=== PATIENT | male | born 1965 | race Caucasian/White ===

== ENCOUNTER 2016-04-23 13:07 | Day surgery (SDC) | payer OTHER ==
[~2016-04-23] VITALS: Ht 177.8 cm; Wt 96.0 kg
[~2016-04-23 13:07] MED LIST: CIPR-231 PO; METR500T19 PO; Sodium Chloride LOK Flush 10 mL Syringe IVFLUSH SCH; fentaNYL-PF 50 mCg/mL 2 mL Inj IVPUSH PRN
[2016-04-23 13:23] VITALS: BP 132/85; PULSE 57; RESP 16; O2SAT 99
[2016-04-23 14:58] VITALS: BP 101/63; PULSE 67; RESP 16; O2SAT 93
[2016-04-23 15:08] VITALS: BP 96/60; PULSE 54; RESP 17; O2SAT 93
[2016-04-23 15:19] VITALS: BP 104/67; PULSE 55; O2SAT 96
--- NOTE | 2016-04-23 18:17 | ENDO ---
[address] [address] ENDOSCOPY PROCEDURE PATIENT: LUCILLE GRIFFIN : 1965 MR#: [id number] ADMIT: 04/23/2016 JOB ID: [id number] PRIMARY CARE PHYSICIAN: Carolina Solis MD PROCEDURE: Colonoscopy. 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 He has never had a screening colonoscopy and is scheduled to undergo a surgical repair of the fistula with sigmoid colectomy in a few weeks. EQUIPMENT: PCF H 180 AL. SEDATION: Versed 8 mg, fentanyl 150 mcg. PREPARATION QUALITY: Fair. COMPLICATIONS: None identified. PROCEDURE INFORMATION: The patient was brought into the endoscopy suite and placed in the left lateral decubitus position. Sedation was achieved using the above-stated medications with the addition of oxygen administered via nasal cannula. A digital rectal exam was performed and unremarkable. The scope was then introduced through the anus and slowly advanced under direct visualization. There was obvious inflammation and some narrowing in the area of the sigmoid colon. The scope was carefully navigated through this and directed into the cecum. The appendiceal orifice as well as the ileocecal valve were identified and photographed. Quality of the prep was fair. The scope was then slowly withdrawn while carefully examining the mucosa for any defects or polyps. I could not directly identify the fistula, though there was a limited segment of sigmoid colon with inflammation. In the rectum, retroflexed views were obtained. The scope was then withdrawn. The entire procedure was well tolerated, without complication. FINDINGS: Diverticular disease in the sigmoid colon with inflammation. RECOMMENDATIONS: The patient will proceed with surgery as scheduled.
== END 2016-04-23 23:59 | disposition home or self-care (01) ==
LOC: END 13:07
PROVIDERS: ATTEND General Practice
DX: N32.1 Vesicointestinal fistula (principal); K57.32 Diverticulitis of large intestine without perforation or abscess without bleeding; Z87.891 Personal history of nicotine dependence
CPT/HCPCS: 45378; 99153; G0500; J2250; J7030

== ENCOUNTER 2016-05-08 05:41 | Inpatient (IN) | payer OTHER ==
[~2016-05-08] VITALS: Ht 177.8 cm; Wt 98.5 kg
[2016-05-08] VITALS (10 sets, daily range): BP systolic 107–135; BP diastolic 72–89; PULSE 72–95; RESP 16–27; O2SAT 94–99
[2016-05-08] MEDS: Lactated Ringer's 1,000 ML IV SCH ×5 (05:00→11:16)
[2016-05-08] MEDS ORDERED: Acetaminophen IV 1,000 MG in IV Premix 1 EACH IV ONE (06:00)
[2016-05-08] MEDS ORDERED: Bupivacaine Liposome 1.3% 20 mL Inj INFILTRATE ONE (06:00)
[2016-05-08] MEDS ORDERED: CeFAZolin Inj 2 GM in IV Premix 1 EACH IV ONE (06:00)
[2016-05-08] MEDS ORDERED: Bupivacaine-MPF 0.5% W/EPI 30 mL Inj INFILTRATE ONE (07:24)
[2016-05-08] MEDS ORDERED: Lactated Ringer's 500 ML IV PRN (08:11)
[2016-05-08] MEDS ORDERED: Lactated Ringer's 1,000 ML IV SCH (08:11)
--- NOTE | 2016-05-08 08:11 | PCM.HPANE ---
Patient Data Date of Service: May 08, 2016 Surgeon Admitting Provider: Attending Provider:Irvin Chung MD Primary Care Physician:Carolina Solis MD Other Provider:Kaye Cantrell Anesthesia Reason for Visit Diverticulitis, Vesicointestinal Fistula Ht/WT & BMI Height (Feet): 5 Height (Inches): 10 Weight (Kilograms): 96.3 Body Mass Index 30.00 Allergies Coded Allergies: No Known Allergies (Unverified , 04/23/16) Past Anesthesia History Anesthesia History: Denies:: Abnormal Airway, Anesthesia Reactions, Difficult Intubation, Fam Anesthesia Reaction, Fam Malignant Hypertherm, Malignant Hyperthermia Diabetes History Hx Diabetes?: No Current Bedside Blood Glucose: 100 MRSA MRSA: No Medications Hypertension Medication: No Home Meds Incl Beta Hossein: No No Active Prescriptions or Reported Meds History HEENT History: Denies:: Abnormal Airway Cataracts Difficult Intubation Dysphagia Glaucoma Hearing Problem Sinus Problem TMJ Hx of Heart Problems?: No Cardiovascular History: Denies:: AICD Abdominal Aortic Aneurism Chest Pain Congestive Heart Failure Coronary Artery Disease Edema Heart Murmur Hypertension Irregular Heartbeat Pacemaker Peripheral Vascular Rheumatic Fever Thrombophlebitis Hx of Respiratory Problem?: No Respiratory History: Denies:: Asthma COPD Emphysema Oxygen Administration Pneumonia Tuberculosis Use of C-PAP Machine Use of Inhalers / NEBS Hx Neurologic Problems?: No Neurological History: Denies:: CVA Headaches Multiple Sclerosis Parkinson's Disease Seizures Hx of GI Problems?: Yes Gastrointestinal History: Positive for:: Diverticulitis Denies:: Gall Bladder Disease Gastroesphageal Reflux Gastrointestinal Bleeding Heartburn Hepatitis Hiatal Hernia Liver Disease Other GI Pertinent History: colovesicular fistula current admission problem Hx of Problems?: No Genitourinary History: Denies:: Kidney Stones Urinary Tract Infection Male Hx: Denies:: Prostate Problems Scrotal Mass Testicular Surgery Skin History: Denies:: History Skin Disorders? Pressure Ulcers Hx Musculoskeletal Problems?: Yes Musculoskeletal History: Positive for:: Back Injury Osteoarthritis (knees) Denies:: Fibromyalgia Joint Replacement Musculoskeletal Trauma Myasthenia Gravis Rheumatoid Arthritis Hx of Psycho/Social Problems?: No Psycho Social History: Denies:: Anxiety Hx Depression Hx Surgeries?: Yes (R KNEE, TONSILS) Hx Any Other Health Problems?: Yes Other History: Denies:: Cancer Thyroid Disease History Blood Transfusions: Positive for:: Accept Blood Products? Denies:: Blood Transfusions Hx Diabetes: NoBedside Blood Glucose: 100 Hx Alcohol Use: YesAlcoholic Drinks Per Day: one drink every few monthsHx Substance Use: No Smoking Status: Former Smoker Have You Smoked inLast 12 mo: No Stop/Bang S-Snoring: Do You Snore Loudly: No T-Tired: feel tired, fatigued: No O-Obsered: Observed not breath: No P-Blood Pressure: treated: No B- Body Mass Index > 35 kg/m2: No A- Age over 50: No N- Neck Large Circumference: No G- Gender Male: Yes HIEN Total Score: 1 HIEN Risk Assessment: Low Risk, <3 Yes Risk Assessment Category Category 1A: Patient has history of documented sleep apnea, and HAS NOT received any narcotic, sedative or anesthesia administration during this stay. Category 1B: Patient has history of documented sleep apnea, and HAS received any narcotic , sedative or anesthesia administration during this stay Category 2: Patient has SUSPECTED Obstructive Sleep Apnea, and HAS received any narcotic , sedative or anesthesia administration during this stay. Category 3: Patient has SUSPECTED Obstructive Sleep Apnea and HAS NOT received narcotic, sedative or anesthesia administration during this stay. Category 4: Outpatient in Procedural Areas with known sleep apnea or who screen positive for High Risk via the STOP/BANG questionnaire. Exam Exam Vital Signs Vital Signs Date Time Temp Pulse Resp B/P Pulse Ox O2 Delivery O2 Flow Rate FiO2 05/08/16 06:04 36 72 16 107/72 96 Room Air General Appearance: Alert, Oriented X3, Cooperative HEENT/AIRWAY: MP 1 Lungs: Clear to Auscultation Heart: Exam Unremarkable Meds/Labs/Diagnostics Admission Meds Current Medications Lactated Ringer's (Lr) 1,000 ml @ 120 mls/hr Q8H20M IV Last administered on 05:50; Start 05/08/16 at 05:00; Stop 05/08/16 at 13:19 Gabapentin (Neurontin) 600 mg PREOP ONCE PO Last administered on 05/08/16 06: 17; Start 05/08/16 at 06:00; Stop 05/08/16 at 06:01; Status DC Celecoxib (CeleBREX) 200 mg PREOP ONCE PO Last administered on 05/08/16 06:17 ; Start 05/08/16 at 06:00; Stop 05/08/16 at 06:01; Status DC Scopolamine 1.5 mg 1.5 mg ONCE ONCE TOPICAL Last administered on 05/08/16 06: 17; Start 05/08/16 at 05:00; Stop 05/08/16 at 05:01; Status DC Acetaminophen/ Premix (Tylenol IV/IV Premix) 100 ml @ 400 mls/hr ONCE ONCE IV Last administered on 05/08/16 06:17; Start 05/08/16 at 06:00; Stop 05/08/16 at 06:14; Status DC Bedside Blood Glucose: 100 Plan Impression Patient chart reviewed, patient interviewed and anesthestic plan with risks, benefits, and alternatives discussed, and informed consent obtained. NPO Status: 05/07/16 ASA Physical Status: ASA2 Mod Systemic Disease Anesthetic Plan: GA Bene/Risks/Altern/Consents: Yes HP Complete Prior to Induction: Yes Arpan Loving MD May 08, 2016 08:11
[2016-05-08] MEDS ORDERED: HYDROmorphone 1 mg/mL Inj IVPUSH PRN (08:15)
[2016-05-08] MEDS ORDERED: Ondansetron 2 mg/mL 2 mL Inj IVPUSH PRN ×2 (08:15→13:05)
[2016-05-08] MEDS ORDERED: Dexamethasone 4 mg/mL Inj IVPUSH PRN (08:15)
[2016-05-08] MEDS ORDERED: EPHEDrine Sulfate 50 mg/mL Inj IVPUSH PRN (08:15)
[2016-05-08] MEDS ORDERED: Phenylephrine 10,000 mCg/mL Inj IVPUSH PRN (08:15)
[2016-05-08] MEDS ORDERED: fentaNYL-PF 50 mCg/mL 2 mL Inj IVPUSH PRN (08:15)
[2016-05-08] MEDS ORDERED: MetoCLOpramide 5 mg/mL 2 mL Inj IVPUSH PRN ×2 (08:15→13:05)
--- NOTE | 2016-05-08 08:45 | OP ---
[address] [address] OPERATIVE REPORT PATIENT: LUCILLE GRIFFIN : 1965 MR#: [id number] ADMIT: 05/08/2016 JOB ID: [id number] DATE OF SURGERY: 05/08/2016 SURGEON: Jordyn Angulo MD PREOPERATIVE DIAGNOSIS(ES): 1. Complicated diverticulitis. 2. Colovesical fistula. POSTOPERATIVE DIAGNOSIS(ES): 1. Complicated diverticulitis. 2. Colovesical fistula. OPERATION PERFORMED: 1. Cystoscopy placement of right illuminated ureteral catheter. 2. Cystoscopy placement left ureteral stent (7-Luxembourger x 22-32 multi-length). ANESTHESIOLOGIST: Arpan Loving MD ANESTHESIA: General. FINDINGS: Urethra normal. External sphincter intact. Prostate 3.5 cm length with mild lateral lobe hyperplasia. There was bullous edema and erythema in a patchy format with no known specific identified fistulous tract at the left dome. Ureteral orifices were normal in appearance bilaterally. There is obstruction met at 10 cm proximal to the left ureteral orifice and neither a illuminated nor a non-illuminated ureteral catheter could be advanced. A 0.35 Chad Glidewire was successfully passed and a subsequently a 7-Luxembourger by 22-32 cm multi-length stent was positioned over the wires successfully. No retrieval line was left attached. PROCEDURE SUMMARY: The patient was positioned supine and was administered general anesthesia. He was then re-positioned in semi-lithotomy and the lower abdomen, genitalia, and groin were prepped and draped in sterile fashion. The 22-Luxembourger panendoscope was then passed through the lower urinary tract with the findings as described above. A red labeled illuminated stent was readily positioned in the right collecting system. The Black labeled illuminated catheter was then advanced through the scope and into the left ureteral meatus and obstruction was met and with careful manipulation could not successful or confidently be passed proximally. It was removed and a whistle-tip ureteral catheter was then utilized and again was met with obstruction at the 10 cm zane. A 0.35 Glidewire was then utilized and advanced into the left collecting system with some manipulation successfully and over this a 7-Luxembourger x 22-32 cm multi-length stent was positioned successfully. No retrieval line was left attached. The bladder was then left partially filled. A 16-Luxembourger Mcarthur catheter was inserted. The illuminated stent was affixed to the catheter with 2 small OpSite dressings. The Mcarthur was placed to gravity drainage. Dr. Chung then proceeded with his portion of the operative plan and details of which can be found in his operative report. From urologic standpoint, I request followup visit in my office 1-2 weeks post discharge for office cystoscopy and left ureteral stent removal.
--- NOTE | 2016-05-08 13:15 | OP ---
[address] [address] OPERATIVE REPORT PATIENT: LUCILLE GRIFFIN : 1965 MR#: [id number] ADMIT: 05/08/2016 JOB ID: [id number] DATE OF SURGERY: 05/08/2016 ANESTHESIA: General. PREOPERATIVE DIAGNOSIS(ES): Sigmoid diverticulitis with colovesicular fistula. POSTOPERATIVE DIAGNOSIS(ES): Sigmoid diverticulitis with colovesicular fistula. OPERATIVE PROCEDURES: 1. Laparoscopic mobilization of splenic flexure. 2. Laparoscopic takedown of colovesicular fistula. 3. Laparoscopic hand assisted sigmoid colectomy with colorectal anastomosis. SURGEON: Dr. Irvin Chung. SECOND CRUSHER: Jorge Nick MD (the research program assistant was required for the safe and timely completion of the case) and Cortney Eden PA-C and Shalom Washington R1. COMPLICATIONS: None. ESTIMATED BLOOD LOSS: 50 mL. CONDITION: Satisfactory. SPECIMEN: Sigmoid colon. FINDINGS: As expected, there was dense inflammation involving the sigmoid colon with a fistula involving the bladder. Bilateral ureteral stents were placed prior to beginning the operation. INDICATION/SIGNIFICANT HISTORY: The patient is a 50-year-old man who recently developed his first episode of diverticulitis a couple months ago. He was treated as an outpatient with oral antibiotics with resolution of symptoms. However, three weeks later he developed recurrent symptoms. CT scan was obtained which demonstrated air in the bladder suggestive of colovesicular fistula. He was referred to co and indeed he is having symptoms of colovesicular fistula. Prior to surgery he underwent a colonoscopy performed by co which showed no other pathology other than diverticulitis. He underwent an antibiotic mechanical bowel prep the night before surgery. OPERATIVE TECHNIQUE: The patient was taken to the operating room and placed in the supine position. General anesthesia was administered and preoperative antibiotics were given. He is placed in the lithotomy. Dr. Angulo then placed bilateral ureteral stents (please see his separately dictated operative report). The abdomen and pelvis were then prepped and draped in a standard surgical fashion. A procedural pause was performed. I began with a small Pfannenstiel incision to accommodate a hand port. The hand port was then inserted and pneumoperitoneum achieved without complication. A 10 mm port was placed through the supraumbilical incision as well as a 5 mm in the left mid abdomen and a 5 mm port in the right mid abdomen. Began with a splenic flexure mobilization. At the ligament of Treitz, the peritoneum was opened and the plane between the mesentery and the retroperitoneum was developed. The inferior mesenteric vein was then taken using an energy device. After mobilizing this in the medial to lateral fashion, attention was then turned to the transverse colon. The omentum was elevated off the colon and the lesser sac entered. The marched along the superior border of the colon with the energy device taking the omentum off the colon. I then went to the left white line of Toldt just below the splenic flexure and mobilized the colon from below upwards. Then we had good mobilization of the splenic flexure. I then turned my attention down to the pelvis. I was able to manually free the sigmoid colon off the bladder with blunt dissection. I then opened up the mesentery at the sacral promontory on the medial aspect. This was after identifying the left ureteral stent. I elected to preserve the MARCIA and superior rectal artery given that this was not a malignancy. I used the energy device to further develop the window in the mesentery. I continued the dissection upwards to adjoin my previous splenic flexure mobilization. I then opened the peritoneum on both the medial and lateral aspects down to my transection point. A small window was made. I then used a contour of blue loads to transect the distal transection point on the rectum. This was done in an open fashion through the hand port incision site. I then used an energy device to march superiorly taking the rest of the mesentery. I then could deliver that through the incision and found a transection point proximal to the obvious inflamed disease. He has diverticulosis throughout the colon, but I chose an area where the colon was soft. Again this was transected with a contour. The remaining bridge of mesentery was taken using an energy device. The specimen was handed off. The automatic centrifugal station operator placed a marking stitch at the proximal staple line. Sizers were then placed through the anus and I elected to use the EEA 29. I inspected to make sure that my proximal colon was going to reached nicely without tension and it in fact did. I then resected the staple line off the proximal colon and inserted the anvil. This was pursestringed using a Prolene suture. Then performed an end-to-end EEA 29 stapled anastomosis. The donuts were inspected and found to be complete. I then tested the anastomosis by dilating the bowel through the anus with air. Loss of motion intra-abdominally with water. No leak was identified. The anastomosis appeared good. There was no tension. The abdomen was then irrigated. The Pfannenstiel incision was then closed using a running 0 PDS suture. I then placed a bilateral tap block using liposomal bupivacaine under laparoscopic visualization. The umbilical fascia was then closed using 0 PDS suture. The remaining ports removed and pneumoperitoneum released. The skin was closed using 4-0 Monocryl. The entire procedure was well tolerated without complication. SOLO
[2016-05-08 13:35] LABS: BASOPHILS % (AUTO) 0.1 % (0-3); EOSINOPHILS % (AUTO) 0 % (0-5); MONOCYTES % (AUTO) 6.7 % (4-12); Mean Corpuscular Hemoglobin 28.9 pg (27.0-35.0); Mean Corpuscular Volume 89.4 fL (81-100); NEUTROPHILS % (AUTO) 90.3 % (40-74); Platelet Count 234 bil/L (150-400)
[2016-05-08] MEDS ORDERED: Neostigmine 1 mg/mL 5 mL Inj ONE (13:51)
[2016-05-08] MEDS ORDERED: Dexamethasone 4 mg/mL Inj ONE (13:51)
[2016-05-08] MEDS ORDERED: fentaNYL-PF 50 mCg/mL 2 mL Inj ONE (13:51)
[2016-05-08] MEDS ORDERED: Succinylcholine Chloride 20 mg/mL 5 mL Inj ONE (13:51)
[2016-05-08] MEDS ORDERED: Propofol 10,000 mCg/mL 20 mL Inj ONE (13:51)
[2016-05-08] MEDS ORDERED: Ketamine 10 mg/mL 20 mL Inj ONE (13:51)
[2016-05-08] MEDS ORDERED: Lidocaine PF 1% 30 mL Inj ONE (13:51)
[2016-05-08] MEDS ORDERED: EPHEDrine/NS 5 mg/mL 5 mL Syringe ONE (13:51)
[2016-05-08] MEDS ORDERED: Rocuronium 10 mg/mL 5 mL Inj ONE (13:51)
[2016-05-08] MEDS ORDERED: Phenylephrine/NS-PF 100 mCg/mL 5 mL Syringe IVPUSH ONE (13:51)
[2016-05-08] MEDS ORDERED: Ondansetron 2 mg/mL 2 mL Inj ONE (13:51)
[2016-05-08] MEDS ORDERED: Glycopyrrolate 0.2 mg/mL 5 mL Inj ONE (13:51)
--- NOTE | 2016-05-08 14:09 | PCM.ANEP1 ---
Post Anesthesia Phase 1 PACU Phase 1 Assessment Date of Service: May 08, 2016 Vital Signs Vital Signs Date Time Temp Pulse Resp B/P Pulse Ox O2 Delivery O2 Flow Rate FiO2 05/08/16 13:45 82 27 128/89 97 Simple Mask 10 05/08/16 13:30 88 21 133/81 98 Simple Mask 10 05/08/16 13:15 36.0 88 18 121/80 98 Simple Mask 10 05/08/16 13:00 84 23 128/73 97 Simple Mask 10 05/08/16 12:55 87 24 132/82 94 Simple Mask 15 05/08/16 12:48 36.1 135/77 Anesthetic Administered: GA Level of Alertness: Sleeping, hard to arouse Pain: No Nausea or Vomiting: No Airway Device: Oralpharangeal Airway (OA & NASAL) Oxygen Delivery: Simple Mask Lungs: Clear to Auscultation Arpan Loving MD May 08, 2016 14:08
[2016-05-08] MEDS: Dextrose 5% Lactated Ringer's 1,000 ML IV SCH (14:49)
--- NOTE | 2016-05-08 15:28 | PCM.ANEP2 ---
Post Anesthesia Evaluation ASA/CMS Post Anesthesia VS in Patient's Normal Range?: Yes Resp Stable; Airway Patent?: Yes CV Function & Hydration Stable: Yes Mental Status Recovered?: Yes Pain control Satisfactory?: Yes N/V Control Satisfactory?: Yes Arpan Loving MD May 08, 2016 15:28
[2016-05-08] MEDS ORDERED: 0.9% Sodium Chloride 250 ML ONE (18:05)
[2016-05-08] MEDS: Heparin 5,000 Unit/mL Inj SUBQ SCH (18:10)
[2016-05-08] MEDS: Acetaminophen IV 1,000 MG in IV Premix 1 EACH IV SCH ×2 (18:12→20:30)
[2016-05-08] MEDS: HYDROmorphone 1 mg/mL Inj IVPUSH PRN (22:44)
[2016-05-09] VITALS (7 sets, daily range): BP systolic 114–131; BP diastolic 64–73; PULSE 52–102; RESP 16–18; O2SAT 92–98
[2016-05-09] MEDS: Acetaminophen IV 1,000 MG in IV Premix 1 EACH IV SCH ×4 (00:03→20:49)
[2016-05-09] MEDS: Heparin 5,000 Unit/mL Inj SUBQ SCH ×3 (01:17→16:34)
[2016-05-09] MEDS: Dextrose 5% Lactated Ringer's 1,000 ML IV SCH ×2 (03:57→15:34)
[2016-05-09 05:25] LABS: BASOPHILS % (AUTO) 0.1 % (0-3); EOSINOPHILS % (AUTO) 0.1 % (0-5); MONOCYTES % (AUTO) 12.9 % (4-12); Mean Corpuscular Hemoglobin 28.9 pg (27.0-35.0); Mean Corpuscular Volume 89.3 fL (81-100); NEUTROPHILS % (AUTO) 76.8 % (40-74); Platelet Count 249 bil/L (150-400)
--- NOTE | 2016-05-09 11:24 | PROG NOTE ---
[address] [address] PROGRESS NOTE PATIENT: LUCILLE GRIFFIN : 1965 MR#: [id number] ADMIT: 05/08/2016 JOB ID: [id number] DATE: 05/09/2016 PROGRESS NOTE: The patient is seen postoperative day one from his laparoscopic hand-assisted sigmoid colectomy and repair of colovesicular fistula. The patient had a relatively uneventful night. This morning, he tells me he is having a little bit of lower abdominal pain in the area of the Pfannenstiel incision but otherwise doing well. He has remained afebrile. He had slight tachycardia up to 101, but this morning his heart rate is 81. He is hemodynamically normal. This morning, he is alert, oriented, and appears comfortable. His abdomen is soft, nondistended. His incisions look fine. His white blood cell count in the immediate postop period was 22.5. It is 15.5 today. His hematocrit when from 48 to 42.7. His platelet count went from 234 to 249. His creatinine bumped slightly from 1.42 to 1.46. ASSESSMENT AND PLAN: This is a 50-year-old man with a colovesicular fistula from diverticulitis, postoperative day one from a laparoscopic hand-assisted sigmoid colectomy. Overall, he is doing well. I have encouraged him get up and walk this morning. His Mcarthur catheter needs to stay in for five days. I told him to go slow with the full liquid diet until he starts having some bowel function. His hematocrit did drop quite a bit, but I think that is largely hemodilutional. I will continue to monitor him.
[2016-05-09] MEDS: Polyethylene Glycol (PEG) 17 Gm Powder PO SCH (12:00)
[2016-05-09] MEDS: HYDROmorphone 1 mg/mL Inj IVPUSH PRN (20:16)
[2016-05-10] MEDS: Heparin 5,000 Unit/mL Inj SUBQ SCH ×4 (00:22→23:43)
[2016-05-10] MEDS: Dextrose 5% Lactated Ringer's 1,000 ML IV SCH ×3 (02:31→15:58)
[2016-05-10] MEDS: Acetaminophen IV 1,000 MG in IV Premix 1 EACH IV SCH ×2 (02:36→08:49)
[2016-05-10 05:45] VITALS: BP 138/83; PULSE 75; RESP 16; O2SAT 96
--- NOTE | 2016-05-10 06:53 | PCM.PNSURG ---
Subjective Visit Information: Reason for Visit Diverticulitis, Vesicointestinal Fistula Surgery/Surgery Date LAP IJEOMA 05/08/16 Post-Op Day # Date of Admission: May 08, 2016 at 13:50 Hospital Day # Subjective: Stable overnight. Smiling this am. Vitals normal. PO 1312mL, including soup/ pudding/Impact. UOP 1320. Ambulating in the halls. Passing small amounts of flatus but no BM yet. Objective Intake and Output- Last 8 Hour 05/10/16 Cumulative From/Thru 07:00 05/06/16 10:59 - 05/10/16 05:55 Intake Total 1076 ml 7690 ml Output Total 2160 ml Balance 1076 ml 5530 ml Intake Oral 1312 ml IV Total 1076 ml 6378 ml Output Urine Total 2020 ml Drainage Total 90 ml Estimated Blood Loss 50 ml # Bowel Movements 0 General: Alert, Oriented X3, Cooperative, No Acute Distress Abdomen: Soft, Appropriately tender, Other (incisions c/d/i) Result Diagram: 05/09/16 0504 05/09/16 0504 Assessment & Plan Impression POD#2 laparoscopic sigmoid colectomy with ureteral stents Problems: Plan d/c IVF Continue FLD, await BM Ambulate, Impact Labs pending this am-->I will f/u on results. Mcarthur to remain in Cystoscopy after discharge for L ureteral stent per Dr. Angulo. Julia Jang MD May 10, 2016 06:53
[2016-05-10 07:00] LABS: Mean Corpuscular Hemoglobin 28.8 pg (27.0-35.0); Mean Corpuscular Volume 90.3 fL (81-100)
[2016-05-10] MEDS: Polyethylene Glycol (PEG) 17 Gm Powder PO SCH (12:00)
[2016-05-10 14:08] VITALS: BP 119/75; PULSE 56; RESP 16; O2SAT 97
[2016-05-10 20:38] VITALS: BP 123/80; PULSE 60; RESP 18; O2SAT 96
[2016-05-11 05:00] VITALS: BP 128/71; PULSE 71; RESP 16; O2SAT 94
[2016-05-11 07:54] LABS: Mean Corpuscular Hemoglobin 28.9 pg (27.0-35.0); Mean Corpuscular Volume 89.7 fL (81-100)
[2016-05-11] MEDS: Heparin 5,000 Unit/mL Inj SUBQ SCH (08:59)
--- NOTE | 2016-05-11 09:14 | PCM.PNSURG ---
Subjective Visit Information: Reason for Visit Diverticulitis, Vesicointestinal Fistula Surgery/Surgery Date LAP IJEOMA 05/08/16 Post-Op Day # Date of Admission: May 08, 2016 at 13:50 Hospital Day # Subjective: BM x2 last night, passing small amounts of flatus. PO >2L. Vitals normal. UOP 5L. WBC decreasing, Hct stable at 41. BMP normal. Smiling. After BMs last night I let him have a soft diet, which he is tolerating. He is not taking narcotics, only tylenol. Objective Vital Sign- Last 8 Hours Date Time Temp Pulse Resp B/P Pulse Ox O2 Delivery O2 Flow Rate FiO2 05/11/16 05:00 36.6 71 16 128/71 94 Room Air Intake and Output- Last 8 Hour 05/11/16 Cumulative From/Thru 07:00 05/06/16 10:59 - 05/10/16 17:49 Intake Total 15582 ml Output Total 7135 ml Balance 3076 ml Intake Oral 3433 ml IV Total 6778 ml Output Urine Total 6995 ml Drainage Total 90 ml Estimated Blood Loss 50 ml # Bowel Movements 2 General: Alert, Oriented X3, Cooperative, No Acute Distress Abdomen: Soft, Non-tender, Other (incisions c/d/i) Result Diagram: 05/11/16 0625 05/10/16 06 Assessment & Plan Impression POD 3 laparoscopic sigmoid colectomy for diverticulitis with colovesical fistula. Problems: Plan Stable for discharge today. F/U Thursday with Dr. Angulo for retana discontinuation and discussion of ureteral stent removal. Julia Jnag MD May 11, 2016 09:14
--- NOTE | 2016-05-11 09:15 | PCM.DISURG ---
Surgical Discharge Instruction Date of Service May 11, 2016 Dates of Hospitalization Date of Hospital Admission May 08, 2016 at 13:50 Providers Admitting Physician: Irvin Chung MD Primary Care Physician: Carolina Solis MD Attending Physician: Irvin Chung MD Discharge Diagnosis Discharge Diagnosis Diverticulitis with colovesical fistula Diet Discharge Diet: No restrictions Activity Discharge Activity-General: Be up and about, No lifting >15 pounds for 2 weeks Dressing and Incisional Care Dressing Care: Allow Steri Stripes to fall off Hygiene: July shower Follow Up Plan Follow Up Plan F/U with Dr. Angulo on Thursday. F/U with Dr. Chnug in 1-2 weeks. Call your provider for: Fever, Chills, Shortness of breath, Increasing abdominal pain, Nausea, Vomiting, Discharge @ incision, pus discharge Julia Jang MD May 11, 2016 09:15
[2016-05-11] MEDS ORDERED: POLY17PO6 PO (09:16)
[2016-05-11] MEDS ORDERED: Acetaminophen PO (09:16)
[2016-05-11] MEDS: Polyethylene Glycol (PEG) 17 Gm Powder PO SCH (12:12)
--- NOTE | 2016-05-12 08:57 | PCM.DC.SUR ---
Discharge Summary Date of Service: Date of Hospital Admission: May 08, 2016 at 13:50 Date of Operation(s): 05/08/16 Date of Discharge: 05/11/16 Diagnosis at Time of Discharge Primary diagnosis: Sigmoid diverticulitis with colovesicular fistula. Problems: Operation 1. Laparoscopic mobilization of splenic flexure. 2. Laparoscopic takedown of colovesicular fistula. 3. Laparoscopic hand assisted sigmoid colectomy with colorectal anastomosis. Brief History and Physical: The patient is a 50-year-old man who recently developed his first episode of diverticulitis a couple months ago. He was treated as an outpatient with oral antibiotics with resolution of symptoms. However, three weeks later he developed recurrent symptoms. CT scan was obtained which demonstrated air in the bladder suggestive of colovesicular fistula. He was referred to me and indeed he is having symptoms of colovesicular fistula. Prior to surgery he underwent a colonoscopy performed by me which showed no other pathology other than diverticulitis. He underwent an antibiotic mechanical bowel prep the night before surgery. Consultants: General surgery: Dr. Irvin Chung Hospital Course: POD # [address] Chung's progress note SUBJECTIVE: The patient had a relatively uneventful night. This morning, he tells me he is having a little bit of lower abdominal pain in the area of the Pfannenstiel incision but otherwise doing well. He has remained afebrile. He had slight tachycardia up to 101, but this morning his heart rate is 81. He is hemodynamically normal. This morning, he is alert, oriented, and appears comfortable. His abdomen is soft, nondistended. His incisions look fine. His white blood cell count in the immediate postop period was 22.5. It is 15.5 today. His hematocrit when from 48 to 42.7. His platelet count went from 234 to 249. His creatinine bumped slightly from 1.42 to 1.46. ASSESSMENT AND PLAN: Overall, he is doing well. I have encouraged him get up and walk this morning. His Retana catheter needs to stay in for five days. I told him to go slow with the full liquid diet until he starts having some bowel function. His hematocrit did drop quite a bit, but I think that is largely hemodilutional. I will continue to monitor him. POD # [address] Jang's progress note SUBJECTIVE: Stable overnight. Smiling this am. Vitals normal. PO 1312mL, including soup/ pudding/Impact. UOP 1320. Ambulating in the halls. Passing small amounts of flatus but no BM yet. General: Alert, Oriented X3, Cooperative, No Acute Distress Abdomen: Soft, Appropriately tender, Other (incisions c/d/i) Assessment & Plan d/c IVF Continue FLD, await BM Ambulate, Impact Labs pending this am-->I will f/u on results. Retana to remain in Cystoscopy after discharge for L ureteral stent per Dr. Angulo. POD # [address] Jang's progress note BM x2 last night, passing small amounts of flatus. PO >2L. Vitals normal. UOP 5L. WBC decreasing, Hct stable at 41. BMP normal. Smiling. After BMs last night I let him have a soft diet, which he is tolerating. He is not taking narcotics, only tylenol. General: Alert, Oriented X3, Cooperative, No Acute Distress Abdomen: Soft, Non-tender, Other (incisions c/d/i) Result Diagram: 05/11/1662405/10/16625 Assessment & Plan POD 3 laparoscopic sigmoid colectomy for diverticulitis with colovesical fistula. Problems: Plan Stable for discharge today. F/U Thursday with Dr. Angulo for retana discontinuation and discussion of ureteral stent removal. Pathology: Pending Disposition: Home with retana catheter Follow-up Plan: F/U with Dr. Angulo on Thursday. F/U with Dr. Chung in 1-2 weeks ([Acetaminophen]) 325 MG TABLET 975 MG PO Q6 Polyethylene Glycol 3350 (Miralax) 17 Gm Powd.pack 17 GM PO NOON copies to: Jordyn Angulo MD; Carolina Solis MD, Sherri L PA-C May 12, 2016 08:56
--- NOTE | 2016-05-12 13:44 | PATH ---
SURGICAL PATHOLOGY Attending Physician:Irvin Chung MD CASE STATUS: Signed Out PATIENT NAME: LUCILLE GRIFFIN PID: [id number] : 1965 DATE COLLECTED:05/08/2016 23:01 SPECIMEN: Colon, Segment Resection, Non-Tumor CLINICAL HISTORY: COMPLICATED DIVERTICULITIS WITH COLOVESICAL FISTULA 1). SIGMOID COLON FINAL DIAGNOSIS: 1.RESECTED PORTION OF SIGMOID COLON (28.5 CM IN LENGTH): DIVERTICULOSIS WITH EXTENSIVE ACUTE AND CHRONIC DIVERTICULITIS. FOCAL AREAS OF TRANSMURAL INFLAMMATION WITH CLINICAL COLOVESICLE FISTULA. Negative for malignancy and significant atypia. 15 benign reactive mesenteric lymph nodes identified. ICD10 code K57 GROSS DESCRIPTION: The specimen is received in formalin, labeled with the patient's name, sublabeled as sigmoid colon and consists of an oriented segment of colon (length-28.5 cm, resection margin #1 diameter-2.8 cm, of resection margin #2 diameter-3.8 cm) and with attached adipose tissue (up to 10.3 cm in depth). The resection margins are received stapled. The mucosa is hagan with compact distorted folds containing diffuse diverticuli. A portion of the segment is congested (7.8 cm) located 7.8 cm from resection margin #1 and 12.9 cm from resection margin #2. This area is contained to show located 13.2 cm scar resection margin #1. Nodules, masses or lesions are identified. Multiple possible lymph nodes (0.8 x 0.6 x 0.5 cm-1.5 x 1.2 x 0.6 cm) are identified. Ink code: black-resection margin. Section code: (A) resection margin #1, longitudinally sectioned, mechanical service representative; (B) resection margin #2, longitudinally sectioned, mechanical service representative; (C-J) colon, serially sectioned from resection margin #1 to #2 (fistula G-I), mechanical service representative; (J-O) 2 bisected lymph nodes in each cassette, one inked black; (P) multiple intact lymph nodes. 05/10/16 MICRO DESCRIPTION: See diagnosis. ICD-9 CODES: CPT CODES: 1: 58446 Electronically Signed Out Peter Barr MD [facility] [address] [place] [address] Technical component performed at [facility], [address], [place], [address]
== END 2016-05-11 15:39 | disposition home or self-care (01) | DRG 654 ==
LOC: SAS 05:41 → OSC 13:50
PROVIDERS: ADMIT General Practice; ATTEND General Practice
PROC: 0DTN0ZZ Resection of Sigmoid Colon, Open Approach (ICD-10-PCS; principal; 2016-05-08 07:30)
PROC: 0TQB0ZZ Repair Bladder, Open Approach (ICD-10-PCS; 2016-05-08 07:30)
DX: N32.1 Vesicointestinal fistula (principal); K57.32 Diverticulitis of large intestine without perforation or abscess without bleeding